=== PATIENT | female | born 1980 | race Caucasian/White ===

== ENCOUNTER 2025-03-13 10:36 | Emergency (ER) | payer OTHER, SELFPAY ==
--- NOTE | ~2025-03-13 | XR_ITS ---
EXAMINATION: XR chest 2V 03/13/2025 10:59 INDICATION: Cough PROCEDURE: 2 view chest COMPARISON: No prior studies for comparison. FINDINGS: The lungs are clear. The cardiomediastinal silhouette is within normal limits. There are no pleural effusions. There is no pneumothorax suspected. IMPRESSION: 1: NO ACUTE CARDIOPULMONARY DISEASE. Reviewed, dictated and finalized at location B.
[2025-03-13 10:49] VITALS: BP 146/90; PULSE 93; RESP 18; TEMP 36.2; O2SAT 100
--- NOTE | 2025-03-13 10:53 | ED.CHESTPAIN ---
HPI - Chest Pain General Chief Complaint: Chest Pain Stated Complaint: Chest/Back Pain Time Seen by Provider: 03/13/25 10:50 Source: patient Mode of arrival: ambulatory Limitations: no limitations History of Present Illness HPI narrative: Nikkie is a 44-year-old female patient presenting to the clinic today with complaints of midsternal chest pain, left scapula pain, and cough. She reports the cough is been going on for 2-3 weeks. Cough is nonproductive but feels as though she needs to get some phlegm up. Symptoms of chest discomfort and left scapula pain started yesterday. She developed a headache and took Excedrin migraine and this helped her headache. States that the pain started in her back and is now radiating into her chest. Pain is sharp and constant. Is unable to give me a pain rating scale number. She is a nonsmoker. Does take oral control but cannot remember the name of it. Recent travel 2 weeks ago to [place]-was a [address] but got out frequently to walk/bathroom breaks. 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 No recent trauma or injury. No history of blood clotting disorders. Denies leg swelling or pain. Denies any history of GERD, hyperlipidemia, hypertension, or diabetes. Denies any fevers, chills, body aches. Denies any shortness of breath or abdomen pain. Related Data Allergies Allergy/AdvReac Type Severity Reaction Status Date / Time codeine AdvReac Intermediate Palpitation Verified 03/13/25 10:53 s latex AdvReac Mild Rash Verified 03/13/25 10:53 Review of Systems Review of Systems: Pertinent positives per HPI. Patient denies any fever, chills, rash, headache, visual changes, dizziness, cough, runny nose, sore throat, shortness of breath, palpitations, nausea, vomiting, diarrhea, constipation, abdominal pain, or any urinary issues. [facility] Surgical History Surgical History (Updated 03/24/23 @ 14:13 by Keshia Carranza) S/P laparoscopic appendectomy Laparoscopic appendectomy 03/10/23 Social History Social History Smoking status: Never smoker Second hand tobacco smoke exposure: Yes Alcohol intake: current Substance use: never Lack of Transportation: No Lack of Food: Never True Current Housing: I Have Housing Concerned About Future Housing: No Difficulty Paying Gas/Electric Bills: No Difficulty Paying for Meds: No Currently Unemployed: No Education: Bachelor's Degree Difficulty w/ Childcare or Family Care: No Spiritual care concerns: No Comments At the time of my signature, I reviewed and agree with the nursing past medical, surgical, social, and family history. There is no relevant family history pertinent to the patient complaint. Exam Narrative: General: Well-developed, well nourished, in no apparent distress Head: Normocephalic, atraumatic. Chest wall: Even rise and fall of the chest wall, no swelling or bruising noted, nontender to palpation Cardio: Regular rate and rhythm, s1 and s2 normal, no murmur appreciated. Resp: Clear to auscultation bilaterally, no rhonchi, rales, wheezing or rubs. Extremities: No deformity, no edema, no cyanosis, capillary refill less than 2 seconds, peripheral pulses palpable and strong. Integumentary: [facility], warm, and dry, intact without lesion, no rashes. Course Course Emergency Course: Portions of this record may have been created with voice recognition software. Level of Care: Express Care Visit Vital Signs Vital signs: Vital Signs Temperature 36.2 C L 03/13/25 10:49 Pulse Rate 93 03/13/25 10:49 Respiratory Rate 18 03/13/25 10:49 Blood Pressure 146/90 H 03/13/25 10:49 Pulse Oximetry 100 03/13/25 10:49 Oxygen Delivery Room Air 03/13/25 10:49 Temperature 36.2 C L 03/13/25 10:49 Pulse Rate 93 03/13/25 10:49 Respiratory Rate 18 03/13/25 10:49 Blood Pressure 146/90 H 03/13/25 10:49 Pulse Oximetry 100 03/13/25 10:49 Oxygen Delivery Room Air 03/13/25 10:49 Vital signs reviewed MDM - Chest Pain MDM Narrative Medical decision making narrative: At the time of visit patient is resting comfortably on the exam table. Patient appears to be nontoxic. EKG: EKG shows sinus rhythm with marked right axis deviation with incomplete right bundle-branch block. Heart rates 82 beats per minute. No ST elevation, depression, or T-wave inversion noted. Diagnostics: Chest x-ray is negative for any acute cardiopulmonary process. Plan: Patient has pain to the left scapula is worse with movement and when taking deep breaths/coughing. No pneumonia, pneumothorax, or cardiomegaly seen on x-ray. Currently denies any shortness of breath. Wells criteria for DVT and PE are very low risk for PE and DVT. Suspicious for muscle skeletal pain due to cough and pain with movement. Will send in Rx for medrol dose pack and muscle relaxer. If symptoms worsen recommend going to the ED for further evaluation. Supportive measures were discussed with the patient and they voiced understanding discharge instructions and agrees to treatment plan. Return precautions reviewed Well Criteria for DVT: 0?points Low risk group for DVT. ?Unlikely? according to Wells? DVT studies. Well Criteria for PE: 0.0?points Low risk group: 1.3% chance of PE in an ED population. Another study assigned scores <=4 as ?PE Unlikely? and had a 3% incidence of PE. Differential Diagnosis Differential diagnosis: Likely fracture of rib, pneumothorax, stable angina, unstable angina pectoris, atypical chest pain, st elevation myocardial infarction, costochondritis, chest pain, biliary colic and other (PE, DVT, CAD, muscle strain, acute cough, pleurisy, pneumonia, congestive heart failure, GERD) Imaging Data Radiologist's impression: ITS Impressions Chest X-Ray 03/13/25 11:02 IMPRESSION: 1: NO ACUTE CARDIOPULMONARY DISEASE. ECG Data EKG #1: Attestation: I personally reviewed and interpreted this ECG as follows: ECG completion date: 03/13/25 ECG completion time: 10:44 Prior ECG tracings: not available for review Interpretation: EKG shows sinus rhythm with heart rate of 82 beats per minute without ST elevation, depression, or T-wave inversion. Shows marked right axis deviation with incomplete right bundle-branch block. AK interval is 151 milliseconds, QRS durations 94 milliseconds, QT-QTC is 358-397 milliseconds, P-R-T axis is 74 107 44 Discharge Plan Discharge Clinical Impression: Atypical chest pain, Pain of left scapula, Muscle strain Patient Disposition: Home Condition: Stable Instructions: Antibiotic Form, Chest Pain (ED), Muscle Strain (ED) Additional Instructions: Chest x-rays negative for any acute cardiopulmonary process. EKG shows sinus rhythm with heart rate of 82 beats per minute. Take any prescription medication only as prescribed-Medrol Dosepak and cyclobenzaprine No lifting more than 10 lb for the next 5 days. Be mindful of sedation precautions given to you if taking a muscle relaxer. May use heat or ice to the affected area May use blue emu, lidocaine patches, or asper cream to affected area- do not apply heat or ice directly over cream- can cause burn. Follow up with your PCP in 3-5 days if symptom persist. Go to the emergency room if symptoms worsen-you develop shortness of breath, worsening chest pain, or any other concerning symptoms Patient Language: Malay Prescriptions: New cyclobenzaprine 10 mg tablet 10 mg PO Q8H PRN (Reason: muscle spasm) 7 Days Qty: 21 0RF methylprednisolone [Medrol ([place])] 4 mg tablets,dose pack See Rx Instructions .ROUTE .COMPLEX Qty: 21 0RF Rx Instructions: orally per package directions Follow-up/Referrals: MONC[facility], [Primary Care Provider] - Stand Alone Forms: Work/School Release IP Time of Disposition: 11:12 Quality NIHSS Nursing Documentation ED NIHSS nursing documentation: reviewed/agree
--- NOTE | 2025-03-13 10:57 | ECG_ITS ---
Test Date: 2025-03-13 10:44:30 Measurements Intervals Davilla Rate: 82 P: 74 VT: 151 QRS: 107 QRSD: 94 T: 44 QT: 358 QTc: 420 Interpretive Statements SINUS RHYTHM RIGHT AXIS DEVIATION INCOMPLETE RIGHT BUNDLE BRANCH BLOCK BASELINE ARTIFACT- I, AVL BORDERLINE ECG No previous ECG available for comparison Electronically Signed On 03-13-2025 10:59:15 CDT by Mir Lewis D.O.
--- OUTSIDE RECORDS SUMMARY | 2025-03-13 12:24 | XMS_ITS | Clinical Summary ---
Author Organization [facility] Virtual Care Address [address] [place] [id number] Phone Care Team Providers Care Wet End Helper Name Role Phone [place] Primary Care Provider [phone] Antonio Trevino MD Unavailable [phone] Allergies Active Allergy Reactions Criticality Noted Date Comments Codeine Palpitations,Other ( See comments),Sweating Low 05/28/2015 Elevated heart rate Latex Redness,Rash,Itching Medium 05/28/2013 Medications acetaminophen-as pirin-caffeine (EXCEDRIN MIGRAINE) 250-250-65 mg per tablet Take 1 tablet by mouth every 6 (six) hours as needed Active loratadine (Claritin) 10 mg tablet Take 1 tablet (10 mg total) by mouth 07/04/2023 Active no115/iron/folic acid ( 19 ORAL) Take by mouth Active levonorgestreL-e thinyl estrad (Levora-28) 0.15-0.03 mg per tablet Take by mouth 07/20/2024 Active Active Problems Problem Noted Date Diagnosed Date History of elevated antinuclear antibody (PARVEZ) 0 10/11/2024 Overview (10/22/2024): 10/11/24: CMP nl, CBC nl, ESR 9, CRP <0.3mg/dL AVISE 10/11/24: PARVEZ 1:160 homogenous, dsDNA 374.98 (negative by crithidia), equivocal R IgM 4.4 Assessment & Plan (10/25/2024 12:56 PM UNIVERSITY TUTOR): 44-year-old female with PMHx of clavicle fx (2012) and s/p ganglionectomy L wrist () c/o history of +PARVEZ, ?RF, and chronic urticaria. Seen by rheum in [place] from [id number] without any official diagnosis and urticaria treated successfully with H1 and H2 blockers. Now only taking Claritin and denies any recurrence of rashes. Onset of left wrist pain following overactivity which has since resolved and denies any joint pain currently. There is no obvious synovitis or tenderness noted on peripheral joint exam. Notes Fhx father with but she denies any SI joint pain starting in childhood/teens, axial AM stiffness, or nocturnal pain. Rheumatologic evaluation with AVISE panel revealed a +PARVEZ 1:160. dsDNA was negative by confirmatory testing and RF was negative. ESR/CRP are normal. Based on isolated PARVEZ and absence of symptoms, there is no evidence to suggest a rheumatologic disease at this time. Plan to follow up as needed. Seen with Dr. Trevino. Assessment & Plan (10/11/2024 3:08 PM UNIVERSITY TUTOR): 44-year-old female with PMHx of clavicle fx (2012) and s/p ganglionectomy L wrist () c/o history of +PARVEZ, ?RF, and chronic urticaria. Seen by rheum in [place] from [id number] without any official diagnosis and urticaria treated successfully with H1 and H2 blockers. Now only taking Claritin and denies any recurrence of rashes. Onset of left wrist pain following overactivity which has since resolved and denies any currently joint pain. There is no obvious synovitis or tenderness noted on peripheral joint exam today. Notes Fhx father with but she denies any SI joint pain starting in childhood/teens, axial AM stiffness, or nocturnal pain. Symptoms and exam are not overly suspicious for a rheumatologic disease. Will order appropriate serologies to further evaluate. Should serologies result in positive AI antibodies, would likely just monitor due to lack of symptoms. Follow up in 2 weeks. Sooner if needed. Seen with Dr. Trevino. Pain of right hip 10/11/2024 Assessment & Plan (10/11/2024 3:09 PM UNIVERSITY TUTOR): Pain in the anterolateral hip around the insertion of the hip flexors vs TFL. Suspect mechanical pain. Could consider formal PT. Thumb paresthesia, left 10/11/2024 Assessment & Plan (10/11/2024 3:10 PM UNIVERSITY TUTOR): Mainly in the mornings then resolves during the day. Suspect transient nerve impingement that could be exacerbated with sleeping position. If symptoms would persist/progress, would consider nocturnal wrist splint before getting EMG/NCS. Immunizations Immunization Administration Dates Next Due Influenza, Trivalent, Cell C ulture-based MDCK, Preservative Free, Antibiotic Free, Intramuscular 07/03/2024 Surgical History Surgery Date Site/Laterality Comments TONSILLECTOMY Bilateral WISDOM TOOTH EXTRACTION APPENDECTOMY 03/03/2023 - 04/01/2023 GANGLION CYST EXCISION 09/02/2024 - 10/02/2024 Left left volar wrist Medical History Medical History Date Comments Clavicle fracture 2012 Social History Tobacco Use Types Packs/Day Years Used Date Smoking Tobacco: Never Tobacco Cessation:Counseling Given: Not Answered Comments Unknown Sex and Gender Information Value Date Recorded Sex Assigned at Not on file Legal Sex Female 3:06 PM UNIVERSITY TUTOR Gender Identity Not on file Sexual Orientation Not on file Obstetrics History Last Filed Vital Signs Vital Sign Reading Time Taken Comments Blood Pressure 136/84 10/25/2024 12:36 PM UNIVERSITY TUTOR Pulse 90 10/25/2024 12:36 PM UNIVERSITY TUTOR Temperature - - Respiratory Rate - - Oxygen Saturation 97% 10/25/2024 12:36 PM UNIVERSITY TUTOR Inhaled Oxygen Concentration - - Weight 64.9 kg (143 lb) 10/25/2024 12:36 PM UNIVERSITY TUTOR Height 164.5 cm (5' 4.75) 10/25/2024 12:[address] Body Mass Index 23.98 10/25/2024 12:36 PM UNIVERSITY TUTOR Plan of Treatment Health Maintenance Due Date Last Done Comments Cervical Cancer Screening 1979 Colon Cancer Screening-Colonoscopy 1979 Depression Screening 1979 Hepatitis C Screening 1979 Hepatitis B Screening 1997 Regular Well Visit/Exam 18-64 1997 Breast Cancer Screening-Mammogram 07/15/2021 07/15/2020, 07/15/2020 DTaP/Tdap/Td Vaccine (1 - Tdap) 08/04/2023 08/03/2023, 07/06/2012 Covid-19 Vaccine (3 - 2023-2 5 season) 2024 11/28/2020, 11/07/2020 Influenza Vaccine Completed 07/03/2024, 08/15/2020, 08/28/2019 HPV Vaccines Aged Out No longer eligi ble based on patient's age to complete this topic Pneumococcal vaccine <65 Aged Out No longer eligible based on patient's age to complete this topic Insurance [facility] CLAIMS [facility] CLAIMS [facility] CLAIMS Care Teams Wet End Helper Relationship Specialty Start Date End Date [place] PA [address] [place], [place] [id number] PCP - General Physician Metal Refiner 08/20/24 Antonio Trevino MD [address] [place] [address] Consulting Physician Rheumatology 08/20/24
--- OUTSIDE RECORDS SUMMARY | 2025-03-13 12:24 | XMS_ITS | Referral Summary ---
Author Organization [facility] Virtual Care Address [address] [place] [phone] Phone Care Team Providers Care Site Safety Representative Name Role Phone [place] Primary Care Provider [phone] Antonio Trevino MD Unavailable [phone] Allergies Active Allergy Reactions Criticality Noted [...] 4.4 Assessment & Plan (10/25/2024 12:56 PM SHEET ROCK NAILER): 44-year-old female with PMHx of clavicle fx (2012) and s/p ganglionectomy L wrist () c/o history of +PARVEZ, ?RF, and chronic urticaria. Seen by rheum in [place] from [phone] without any official diagnosis and urticaria treated [...] Trevino. Assessment & Plan (10/11/2024 3:08 PM SHEET ROCK NAILER): 44-year-old female with PMHx of clavicle fx (2012) and s/p ganglionectomy L wrist () c/o history of +PARVEZ, ?RF, and chronic urticaria. Seen by rheum in [place] from [id number] without any official diagnosis and urticaria treated [...] 10/11/2024 Assessment & Plan (10/11/2024 3:09 PM SHEET ROCK NAILER): Pain in the anterolateral hip around the insertion of the hip flexors vs TFL. Suspect mechanical pain. Could consider formal PT. Thumb paresthesia, left 10/11/2024 Assessment & Plan (10/11/2024 3:10 PM SHEET ROCK NAILER): Mainly in the mornings then resolves during the day. Suspect transient nerve impingement that could be exacerbated with sleeping position. If symptoms would persist/progress, would consider nocturnal wrist splint before getting EMG/NCS. Immunizations Immunization Administration Dates Next Due Influenza, Trivalent, Cell C ulture-based MDCK, Preservative Free, Antibiotic Free, Intramuscular 07/03/2024 Social History Tobacco Use Types Packs/Day Years Used Date Smoking Tobacco: Never Tobacco Cessation:Counseling Given: Not Answered Comments Unknown Sex and Gender Information Value Date Recorded Sex Assigned at Not on file Legal Sex Female 3:06 PM SHEET ROCK NAILER Gender Identity Not on file Sexual Orientation Not on file Last Filed Vital Signs Vital Sign Reading Time Taken Comments Blood Pressure 136/84 10/25/2024 12:36 PM SHEET ROCK NAILER Pulse 90 10/25/2024 12:36 PM SHEET ROCK NAILER Temperature - - Respiratory Rate - - Oxygen Saturation 97% 10/25/2024 12:36 PM SHEET ROCK NAILER Inhaled Oxygen Concentration - - Weight 64.9 kg (143 lb) 10/25/2024 12:36 PM SHEET ROCK NAILER Height 164.5 cm (5' 4.75) 10/25/2024 12:[address] Body Mass Index 23.98 10/25/2024 12:36 PM SHEET ROCK NAILER Plan of Treatment Not on file Insurance [facility] CLAIMS [facility] CLAIMS [facility] CLAIMS Care Teams Site Safety Representative Relationship Specialty Start Date End Date [place] PA [address] [place] [address] PCP - General Physician Curing Room Worker 08/20/24 Antonio Trevino MD [address] [place] [address] Consulting Physician Rheumatology 08/20/24
--- OUTSIDE RECORDS SUMMARY | 2025-03-13 12:24 | XMS_ITS | Continuity of Care Document ---
Author Organization [facility] sician Services Address [address] [place] [id number] Phone Care Team Providers Care Analytical Laboratory Technician Name Role Phone Jacklyn Clemente Unavailable Unavailable Allergies, Adverse Reactions, Alerts Substance Reaction Status Criticality latex Rash Active No Information codeine Altered Heart Rate Active No Inform ation Medications Medication Instructions Dosage Effective Dates (start - stop) Status Comments KURVELO 0.15 MG-30 MCG TAB TAKE ONE TABLET BY MOUTH ONCE DAILY 1.00 tablet - Active ketoconazole 2 % shampoo apply by topical route every 3 days to the affected area(s), lather, leave in place for 5 minutes, and then rinse off with water - Active Problems Condition Type Effective Dates (start - stop) Clini arnulfo Status Comments No Known Problems Procedures Procedure Date PREV VISIT, EST, AGE 18-39 Ofc/Outpt Visit, Est, Level 3 8 PREV VISIT, EST, AGE 18-39 Ofc/Outpt Visit, Est, Level 3 7 Simple Closure < 2.5 cm DRAINAGE OF SKIN ABSCESS Ofc/Outpt Visit, Est, Level 3 6 PREV VISIT, NEW, AGE 18-39 Advance Directives Directive Yes / No Effective Date File Name No Information Encounters Encounter Description Practice Location Reason(s) For Visit Diagnoses Date Provider Providers Copied on Encounter [facility], [address] [place] [address], [id number], tel:[phone] [facility] No Information 9 Leidy Villasenor. [address], [id number] [place], [id number] , [place]. tel: [phone] PREV VISIT, EST, AGE 18-39 [facility], [address] [place] [address], [id number], tel:[phone] [facility] well visit (chief complaint) Encntr for internet specialist exam (general) (routine) w/o abn findingsDyspareunia in female 8 Leidy Villasenor. [address], [id number] [place], [id number] , [place]. tel: [phone] Ofc/Outpt Visit, Est, Level 3 [facility], [address] [place] [address], [id number], [place] tel:[phone] [facility] L arm/hand pain twitching (chief complaint) Myofascial painStrain of left trapezius muscle, initial encounter 8 Leidy Villasenor. [address], [id number] [place], [id number] , [place]. tel: [phone] PREV VISIT, EST, AGE 18-39 [facility], [address] [place] [address], [id number], [place] tel:[phone] [facility] well visit (chief complaint) Encntr for internet specialist exam (general) (routine) w/o abn findingsFollicular cyst of the skin and subcutaneous tissue, unspPositive PARVEZ (antinuclear antibody)Blood in stool 7 Leidy Villasenor. [address], [id number] [place], [id number] , [place]. tel: [phone] Ofc/Outpt Visit, Est, [facility] 3 [facility], [address] [place] [address], [id number], tel:[phone] [facility] breast lump (chief complaint) dog bite (chief complaint) Exposure to blood-borne pathogenBreast cyst, right 7 Leiyd Villasenor. [address], [id number] [place], [id number] , [place]. tel: [phone] [facility], [address] [place] [address], [id number], [place] tel:[phone] [place] Bite injury (chief complaint) Forearm laceration, left, initial encounterDog bite, initial encounter Denisse Elizabeth. [address], [id number] [place], [id number] , [place]. tel: [phone] [facility], [address] [place] [address], [id number], tel:[phone] [facility] lymph node (chief complaint) Follicular cyst of the skin and subcutaneous tissue, unsp 6 Leidy Villasenor. [address], [id number] [place], [id number] , [place]. tel: [phone] Referring Provider: Jacklyn Forbes, [address] [id number] [place], [address] . tel:[phone] Ofc/Outpt Visit, [facility], Level 3 [facility], [address] [place] [address], [id number], [place] tel:[phone] [facility] chest pain (chief complaint) AnxietyChest pain of uncertain etiology 6 Leidy Villasenor. [address], [id number] [place], [id number] , [place]. tel: [phone] Referring Provider: Jacklyn Forbes, [address] [id number] [place], [address] . tel:[phone] PREV VISIT, NEW, AGE 18-39 [facility], [address] [place] [address], [place], [place], [id number], [place] tel:[phone] [facility] well visit (chief complaint) Encntr for internet specialist exam (general) (routine) w/o abn findingsGroin lumpDyspareunia in female 201 6 Leidy Villasenor. [address], [id number] [address], [place], [place], [id number] , [place]. tel: [phone] Referring Provider: Jacklyn Forbes, [address] [id number] [address]BN, [place], [address] . tel:[phone] Family History Family Member Type Diagnosis Age At Onset Mother Problem (finding) HEART MURMER 50 Maternal grandmother Problem (finding) HEART MURMER 50 Paternal grandmother Problem (finding) diabetes mellit us type 2 Paternal grandfather Problem (finding) diabetes mellit type 2 Father Problem (finding) akylospondilosis Immunizations Vaccine Date Status Comments Td (adult), adsorbed administered Note: I nvalid documented admin date was //2011. ; Source: Other Provider Payers Payer name Insurance type Covered libertarian ID Authoriza tion(s) [facility] [id number] Social History Type Description Quantity Date Captured Comments Alcohol Use Details Unknown Caffeine Use Details Unknown Tobacco Use Status No Information Smoking Status No Information Sex Female Sexual Orientation Straight or heterosexual Chief Complaint And Reason For Visit No Information Reason For Referral Reason For Referral No Information Plan Of Treatment Date Type Action Status Referral Ordered: Norberto Rawls DC -Chiropractic Medicine (related to Strain of left trapezius muscle, initial encounter) ordered Referral Referred To: Norberto Rawls DC [address] [place], [place], [id number] Ordered: Referrals: Chiropractic Medicine. Norberto Rawls DC. Location: Chiropractic. Evaluate and treat ordered Referral Ordered: Alma Carroll MD -Rheumatology (related to Positive PARVEZ (antinuclear antibody)) ordered Referral Referred To: Alma Carroll MD [address] [place], [place], [id number] Ordered: Referrals: Rheumatology. Alma Carroll MD. Evaluate and treat ordered Future Order: Lab Order CBC/AUTO DIFF ([id number]), Appointment on: , Sent on: Sent Future Order: Lab Order VITAMIN D (25-HYDROXY) LEVEL ([id number]), Appointment on: , Sent on: Sent Future Order: Lab Order LIPID NM OFILE ([id number]), Appointment on: , Sent on: Sent Future Order: Lab Order COMPREHE NSIVE METABOLIC PANEL ([id number]), Appointment on: , Sent on: Sent Future Order: Lab Order TSH W/ F T4 REFLEX IF INDICATED ([id number]), Appointment on: , Sent on: Sent Future Order: Lab Order HEPATITI S B SURFACE ANTIGEN ([id number]), Appointment on: , Sent on: Sent Future Order: Lab Order HIV 1 & 2 ANTIBODY/ANTIGEN ([id number]), Appointment on: , Sent on: Sent Future Order: Lab Order HEPATITI S C ANTIBODY ([id number]), Appointment on: , Sent on: Sent Future Order: Lab Order HEPATITI S B SURFACE ANTIGEN ([id number]), Appointment on: , Sent on: Sent Future Order: Lab Order HIV 1 & 2 ANTIBODY/ANTIGEN ([id number]), Appointment on: , Sent on: Sent Future Order: Lab Order HEPATITI S C ANTIBODY ([id number]), Appointment on: , Sent on: Sent Future Order: Lab Order CULTURE, AEROBIC & GRAM STAIN ([id number]), Appointment on: , Sent on: Sent History Of Present Illness Encounter Date Complaint History Of Segundo nt Illness well visit (comments) Nikkie is a 37 year old G0 female who presents for a comprehensive well woman exam. She has no history of abnormal pap smears. Her last pap was 02/12/2016 with HPV co-testing. She is currenlty using OCPs for controle. Her menses is monthly, lasting 4 days, normal flow, and no crmaping. She denies any abnormal vaginal discharge, odor, or itching. She does report painful intercourse. She was given Premarin cream to use, but she never tried it. She denies any breast lumps, bumps, or nipple discharge. Nikkie has no complaints today. She reports her shoulder pain has improved since working with Dr. Rawls. Socially, Nikkie is . 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 She is exercising 2x/week. She denies any tobacco, alcohol, or drug use. She reports that she may be moving to [place] in the fall. She enjoys taking trips and golfing. well visit Currently pregna nt: no. The patient states she uses oral contraceptive for control. Last LMP was 02/22/2018. Negative for: breast discharge, breast lump(s) and breast pain. Positive for: breast self exam. Menopausal symptoms negative for: hot flashes, insomnia, night sweats and vaginal dryness. There are no associated symptoms. Pertinent negatives include abnormal bleeding, anxiety, decreased libido, depression, difficulty falling sleep, dyspareunia, history of infertility, nocturia, sexual dysfunction, sleep disturbances, urinary incontinence, urinary urgency, vaginal discharge and vaginal itching. She does not take calcium. She does not take Vitamin D. She does not take multivitamins. She does not take Folic acid.The patient states her exercise level is moderate and frequency is 2-3 times/week. The patient does not use tobacco. She does drink alcohol. L arm/hand pain twitching L arm/hand pain twit hari (comments) Nikkie presents today for complaints of left arm pain and numbness with twitching of her fingers. She reports onset was one week ago. She does not recall any trauma or injury. 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 She reports the pain starts in her chest, above her left breast. It then radiates over her shoulder to her scapula and moves down the dorsal aspect of her left arm to her fingers. Her pain has been random with movement and at rest. For example, she woke up one morning with pain and her 3rd and 4th fingers twitching. She denies any salesforce trainer strength weakness. No complaints of neck stiffness. She does have increased frontal headaches. well visit The patient stat es she uses oral contraceptive for control. Last LMP was 02/24/2017. Negative for: breast discharge, breast pain and breast self exam. Positive for: breast lump(s) (side: right). Associated symptoms include anxiety and dyspareunia. Pertinent negatives include abnormal bleeding, decreased libido, depression, difficulty falling sleep, history of infertility, nocturia, sexual dysfunction, sleep disturbances, urinary incontinence, urinary urgency, vaginal discharge and vaginal itching. She does not take calcium. She does not take Vitamin D. She does not take multivitamins. She does not take Folic acid.The patient states her exercise level is moderate and frequency is 2-3 times/week. The patient does not use tobacco. She does drink alcohol. well visit (comments) Nikkie is a 36-year-old G0 female who presents for a comprehensive well woman exam. She has no history of abnormal Pap smears. Her last Pap was 02/12/2016 with HPV co-testing. She is currently using [place] OCP for control. She reports her menses is monthly lasting 3-4 days with color technician flow. She does have pain with intercourse. We did try to address this last year. At time she had tried multiple lubrications and position changes with no improvement. We did prescribe some vaginal estrogen to see if that would improve things, however she never trialed it. She is not overly interested in addressing this issue today. She denies any breast lumps bumps or nipple discharge. She does continue to have the small follicular cyst on her RIGHT breast. It is improved but continues to itch periodically. She is using triamcinolone cream 2 times a week for the itching. Nikkie also reports that the follicular cyst located on her LEFT groin is much better but continues to flareup.Nikkie has a history of a nonspecific autoimmune diagnosis. She was 1st evaluated in September 2010 in [facility] [place]. She had a workup at that time that showed a positive PARVEZ and a positive PATROL GUARD. Her laboratory testing done in 2012 in [facility] continued to show that the patient was PARVEZ positive. She also had a positive PATROL GUARD and HLA B 27. At that time she was instructed to follow up with rheumatology every 6-12 months. Significant to her family history is a father with ankylosing spondylitis in her father. Today, the patient denies any joint pain or morning stiffness. She denies any history of Raynaud's or mouth ulcerations. She has not had any further problems with skin rashes. She does report dry skin and dry scalp and is currently using a medicated shampoo. She does have a history of dry eye and several different eye infections. The patient does frequently complain of an unspecified fatigue. She is unable to identify any causes of this fatigue. She does have a underlying history of anxiety. She is currently treating that anxiety with yoga and exercise.Nikkie reports a family concern of heart murmur. She states that her maternal grandmother, mother, maternal uncle, and her sister all have a history of heart murmur. Nikkie does not know the underlying cause of the heart murmurs. She denies any palpitations, dizziness, or new fatigue.The patient complains of diarrhea and blood in her stools. She reports a longstanding history of IBS. This has previously been treated with amitriptyline to control her diarrhea. She stopped treatment years ago. Since starting her job here in [place] she has trouble with diarrhea at least 2-4x/month. She has noted blood in her stools with diarrhea and when she is constipated. She reports that when she has nice soft and formed stools there is no blood. She denies any knowledge of hemorrhoids. Onset of blood in her stools was over 6 months ago. She reports that she notes the blood in her stool about 2 times per monthSocially, Nikkie is . She works as a [employer]. She has a degree in wildlife biology and would like to pursue a master's degree [employer] in biology. She exercises 3 times per week. She denies tobacco or drug use. She does have rare alcohol use. breast lump (comments) Nikkie pr esents today for complaints of small nodule on her breast, near the nipple. Onset 1 month ago. She initially just thought she had dry skin and began putting lotion on it. However, it got enamel drier and bigger, and seemed to spread up. It is very itchy and periodically painful. She denies any nipple discharge, redness, or streaking. No other masses/lumps palpated on the breasts. Denies fever, headache, n/v. dog bite (comments) Nikkie was b iten by a dog at her work about 1 month ago. The dog was originally hanging onto its owners face in a locked bite, then transferred the bite from the street light wirer to Nikkie's arm. Nikkie did require stitches. She was tested at that time for blood born pathogens. No f/u mentioned at that time. dog bite breast lump Bite injury Bite injury The injury occur red on 11/23/2016. Symptoms related to the bite injury remain unchanged. The injury was work related and occurred on 11/23/2016. Mechanism of injury details: bit by dog at work on left forearm. The patient denies any aggravating factors. Interventions the patient has tried have not provided any relief. The patient denies any abdominal pain, decreased mobility, generalized weakness, joint pain, localized swelling or rash. Comments: Patient was at work today helping. Dog got run over by a car into the [facility] when the dog became very agitated and started biting its street light wirer as well as some other workers including the patient. The rabies status at this time is unknown the dog however the dog is in the custody of the ground water technician's rabies status should be noted by morning. Patient's tetanus is up-to-date last received 2011 lymph node lymph node (comments) Patient pr esents for evaluation of a swollen lymph node. The lymph node is located in her groin. During her AE, I had encouraged the patient to present when the lymph node was inflamed. The lymph node is noted as coming and going during her menses monthly. She states that the lymph node is swollen and painful today. She denies fever/chills, n/v, diarrhea, or dysuria. chest pain (comments) Nikkie heath presents today for f/u on her chest pain. She called 2 days ago and reported to our office she was having chest pain. We directed her to the ER. Her evaluation in the ER resulted in normal CXR, NSR on EKG, and labs WNL. She subsequently had a stress test today that was WNL. Stefanie reports today that her chest pain has been off and on for the last 1.5 weeks primarily at work. Her chest pain begins at the left ICS at about T3 and radiates over her left shoulder and down her arm, sometimes into her fingers. The pain comes and goes, but seems fairly steady while at work. 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 She was previously a veterinary anatomist in [place], [place] with no problems. She previously worked at [employer]. She loves animals and feels fearful about changing jobs. Stefanie reports that she has tried to be proactive in changing the environment of her job by talking with management and some of the Veteran[employer]. Stefanie feels extreme stress and anxiety about work. She is able to meet the demands put on her at work, but it comes at an expense of her peace, mekhi, and happiness. The demands of work affect her not only on the days she works, but on her days of when she simply thinks about work. She denies SI and HI. She is having nightmares of someone chasing her, causing very interrupted sleep. Of note, in September of 2010 Stefanie developed uriticaria. She had a work-up that had a positive PARVEZ and positive PATROL GUARD (non-specific connective tissue). However, she was seen by a captain assistant in [place], [place] that did not feel Stefanie fulfilled the criteria for diagnosis of lupus or mixed connective tissue disorder despite these positive serological tests. Her only symptom at that time and thus far is dry eyes. She has been seen by rheumatology every 6 months-year since 2010. chest pain well visit (comments) Nikkie is a 35 year old G0 female who presents for a comprehensive well woman exam. She reports no history of abnormal pap smears. Her last pap was 1 year ago in [place]. She is using [place] OCP for control. She reports her period is monthly, Lasts 4 days, light, no pain. She denies any abnormal vaginal discharge, odor, or itching. She does have pain with intercourse. It is begins with insertion and feels like the tissues are being pulled. There is sometimes a burning sensation as well. She has tried multiple lubrications and position changes with no improvement. She denies any breast lumps, bumps, or nipple discharge.Nikkie complains today of a lump in her left groin that comes and goes. She reports that when it comes it lasts 1-2 months. She has history of a non-specific autoimmune diagnosis. She also reports a history of anxiety that causes GI upset (vomiting or diarrhea). She has not taken medication for her anxiety and does not feel it occurs enough to warrant intervention. Socially, Nikkie is . She and her do not have plans to have children. They are originally from [place]. Her was relocated her to fly the [employer]. 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 She exercises 3 days/week with weights and cardio. She denies tobacco or drug use. Rare alcohol use. well visit The patient stat es she uses oral contraceptive for control. Last LMP was 01/29/2016. Her menses is regular with normal flow with a frequency of every 28 days. Negative for dysmenorrhea and menorrhagia. Negative for: breast discharge, breast lump(s) and breast pain. Positive for: breast self exam. Pertinent negatives include abnormal bleeding, anxiety, decreased libido, depression, difficulty falling sleep, dyspareunia, history of infertility, nocturia, sexual dysfunction, sleep disturbances, urinary incontinence, urinary urgency, vaginal discharge and vaginal itching. She does not take calcium. She does not take Vitamin D. She does not take multivitamins.The patient states her exercise level is moderate and frequency is 2-3 times/week. The patient does not use tobacco. She does drink alcohol. Functional Status Date Functional Assessmen t No Information Instructions Date Instruction Additional Infor duy Encouraged patient t o trial vaginal cream. Offered to send updated prescription. Patient declined. Related to Dyspareunia in female Pap with HPV co-test ing completed today. OCP refilled. Encouraged self-breast exams. Mammograms recommended at the age of 40 years. Advised daily multivitamin and vitamin D supplementation. Patient to f/u in 1 year or provider of choice if/when she moves. Related to Encntr for internet specialist exam (general) (routine) w/o abn findings Patient to continue conservative measures such as rest, ice, and gentle stretches. Referral to Dr. Rawls for evaluation and treatment. Patient to f/u as needed. Related to Strain of left trapezius muscle, initial encounter If she the blood in her stools becomes more regular and/or associated with normal BMs, I advise colonoscopy. Related to Blood in stool Breast and pelvic ex am completed today. Pap due in 2020OCP refilled. Encouraged self breast exams. Preventative labs ordered.Advised regular physical activity.Patient to follow-up in one year or sooner as needed. Related to Encntr for internet specialist exam (general) (routine) w/o abn findings Prescription for cli ndamycin 300 mg by mouth 3 times daily 7 days.Prescription for mupirocin to be applied topically 2 times daily 7 days. Related to Follicular cyst of the skin and subcutaneous tissue, unsp Referral to Alma Carroll, Rheumatology at [facility]. Related to Positive PARVEZ (antinuclear antibody) Patient instructed t o cleanse with hibiclens daily x 7 days. Hydrocortisone 2.5% for inflammation and pruiritis. Keflex 500 mg BID x 7 days. Patient to RTC if no improvement. Related to Breast cyst, right Advise 6 months f/u on evaluation of exposure to BPP. Related to Exposure to blood-borne pathogen Form is fax[facility] to [facility]. Rabies status of the mandible is unknown right now but will be known in the morning. Dog is already in quaranite if its rabies status is unknown or inadequate. f/u with [facility] recommended. should not need rabies treatment either way. Related to Dog bite, initial encounter Laceration thoroughl y irrigated with copious saline solution.Time out [id number] lidocaine 2% with epi used to obtain adequate anesthesiaBorders approximated with 3 interrupted sutures using 5-0 ethilon.Bacitracin placed on wound and covered.Patient to keep wound clean and dry for 24 hours. After 24 hours patient may then shower and clean area gently with mild soap and water. Patient should avoid dirty water. Daily bandage changes and twice a day application of bacitracin. Watch for signs of infection, which were discussed. Elevate as needed. Ice as needed. Tslu-foj-erleilm Tylenol or ibuprofen when necessary. Followup for suture removal in 7-10 days.Patient is placed on Augmentin for prophylaxisTetanus is up to dateDisposition: sent home Related to Forearm laceration, left, initial encounter Suspect folliculitis secondary to shaving, despite the cyclic nature of the formation of the cyst with the patient's menses. Patient instructed to anticipate some bruising and tenderness in the area. May use ibuprofen for comfort. Prescription for ciprofloxacin. Encouraged warm compresses for comfort. Related to Follicular cyst of the skin and subcutaneous tissue, unsp Along with treatment for anxiety as previously mentioned, I recommended referral to PT and/or massage therapy. If these conservative measures due not alleviate pain, in particular the pain down her left arm, evaluation with Ortho may be beneficial. F/u with rheumatology as done in the past to re-evaluate for any connective tissue disorder may be helpful as well. Related to Chest pain of uncertain etiology Discussed treatment options to include quitting her current job, treatment with SSRI, counseling, and increased exercise. At this point, I strongly advised Stefanie to quit her job and look for a new one, if possible. I also advised counseling and mentioned referral to Rhonda Sepulveda. Related to Anxiety Prescription for pre johnson cream given to see if dyspareunia, in particular the pulling/ripping tissue sensation, resolves. Related to Dyspareunia in female Patient will notify me when the lump is at its largest and I will arrange ultrasound at that time. Related to Groin lump Discussed [facility] janelle rodriguez. Pap with HPV cotesting completed today. control refilled. Patient will take continuously with 3 periods/year. Encouraged self-breast exams. Patient to f/u in 1 year or sooner as needed. 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
--- OUTSIDE RECORDS SUMMARY | 2025-03-13 12:33 | XMS_ITS | Continuity of Care Document ---
Author Organization [facility] sician Services Address [address] [place] [address] Phone Care Team Providers Care Aoc Director Combat Operations Officer Name Role Phone Jacklyn Clemente Unavailable Unavailable [...] Diagnoses Date Provider Providers Copied on Encounter [facility], [address] [place] [address], [id number], tel:[phone] [facility] No Information 9 Leidy Villasenor. [address], [id number] [place], [id number] , [place]. 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 [address], [id number] [place], [id number] , [place]. tel: [phone] Ofc/Outpt Visit, Est, Level 3 [facility], [address] [place] [address], [id number], [place] tel:[phone] [facility] L arm/hand pain twitching (chief complaint) Myofascial painStrain of left trapezius muscle, initial encounter 8 Leidy Villasenor. [address], [id number] [place], [id number] , [place]. tel: [phone] PREV VISIT, EST, AGE 18-39 [facility], [address] [place] [address], [id number], [place] tel:[phone] [facility] well visit (chief complaint) Encntr for inventory control planner exam (general) (routine) w/o abn findingsFollicular cyst of the skin and subcutaneous tissue, unspPositive PARVEZ (antinuclear antibody)Blood in stool 7 Leidy Villasenor. [address], [id number] [place], [id number] , [place]. tel: [phone] Ofc/Outpt Visit, Est, [facility] 3 [facility], [address] [place] [address], [id number], tel:[phone] [facility] breast lump (chief complaint) dog bite (chief complaint) Exposure to blood-borne pathogenBreast cyst, right 7 Leidy Villasenor. [address], [id number] [place], [id number] , [place]. tel: [phone] [facility], [address] [place] [address], [id number], [place] tel:[phone] [place] Bite injury (chief complaint) Forearm laceration, left, initial encounterDog bite, initial encounter Denisse Elizabeth. [address], [id number] [place], [id number] , [place]. tel: [phone] [facility], [address] [place] [address], [id number], tel:[phone] [facility] lymph node (chief complaint) Follicular cyst of the skin and subcutaneous tissue, unsp 6 Leidy Villasenor. [address], [id number] [place], [id number] , [place]. tel: [phone] Referring Provider: Jacklyn Forbes, [address] [id number] [place], [address] . tel:[phone] Ofc/Outpt Visit, [facility], Level 3 [facility], [address] [place] [address], [id number], [place] tel:[phone] [facility] chest pain (chief complaint) AnxietyChest pain of uncertain etiology 6 Leidy Villasenor. [address], [id number] [place], [place], [id number] , [place]. tel: [phone] Referring Provider: Jacklyn Forbes, [address] [id number] [place], [address] . 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 [address], [id number] [address], [place], [place], [id number] , [place]. tel: [phone] Referring Provider: Jacklyn Forbes, [address] [id number] [address], [place], [address] . tel:[phone] Family History Family Member Type Diagnosis Age [...] Provider Payers Payer name Insurance type Covered green party ID Authoriza tion(s) [facility] [id number] Social History Type Description Quantity Date Captured [...] [place] [address] [place], [place], [id number] Ordered: Referrals: Chiropractic Medicine. Norberto Rawls DC. Location: Chiropractic. Evaluate and treat ordered Referral Ordered: Alma Carroll MD -Rheumatology (related to Positive PARVEZ (antinuclear antibody)) ordered Referral Referred To: Alma Carroll MD [address], [place], [phone] Ordered: Referrals: Rheumatology. Alma Carroll MD. Evaluate and treat ordered Future Order: Lab Order CBC/AUTO DIFF ([id number]), Appointment on: , Sent on: Sent Future Order: Lab Order VITAMIN D (25-HYDROXY) LEVEL ([id number]), Appointment on: , Sent on: Sent Future Order: Lab Order LIPID OH OFILE ([id number]), Appointment on: , Sent on: Sent Future Order: Lab Order COMPREHE NSIVE METABOLIC PANEL ([id number]), Appointment on: , Sent on: Sent Future Order: Lab Order TSH W/ F T4 REFLEX IF INDICATED ([id number]), Appointment on: , Sent on: Sent Future Order: Lab Order HEPATITI S B SURFACE ANTIGEN ([id number]), Appointment on: , Sent on: Sent Future Order: Lab Order HIV 1 & 2 ANTIBODY/ANTIGEN ([id number]), Appointment on: , Sent on: Sent Future Order: Lab Order HEPATITI S C ANTIBODY ([id number]), Appointment on: , Sent on: Sent Future Order: Lab Order HEPATITI S B SURFACE ANTIGEN ([id number]), Appointment on: , Sent on: Sent Future Order: Lab Order HIV 1 & 2 ANTIBODY/ANTIGEN ([id number]), Appointment on: , Sent on: Sent Future Order: Lab Order HEPATITI S C ANTIBODY ([id number]), Appointment on: , Sent on: Sent Future Order: Lab Order CULTURE, AEROBIC & GRAM STAIN ([id number]), Appointment on: , Sent on: Sent History [...] Nikkie is . 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 She is exercising 2x/week. She denies any tobacco, alcohol, or drug use. She reports that she may be moving to [place] in the fall. 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 She reports the pain starts in her chest, above her left breast. It then radiates over her shoulder to her scapula and moves down the dorsal aspect of her left arm to her fingers. Her pain has been random with movement and at rest. For example, she woke up one morning with pain and her 3rd and 4th fingers twitching. She denies any family intervention specialist strength weakness. No complaints of neck stiffness. [...] with HPV co-testing. She is currently using [facility] for control. She reports her menses is monthly lasting 3-4 days with stenographer print shop flow. She does have pain with intercourse. [...] evaluated in September 2010 in [facility] [place]. She had a workup at that time that showed a positive PARVEZ and a positive PROFESSOR OF RELIGION. Her laboratory testing done in 2012 in [facility] continued to show that the patient was PARVEZ positive. She also had a positive PROFESSOR OF RELIGION and HLA B 27. At that time [...] ago. Since starting her job here in [place] she has trouble with diarrhea at least [...] Nikkie is . She works as a [employer]. She has a degree in wildlife biology [...] putting lotion on it. However, it got short goods drier and bigger, and seemed to spread [...] bite, then transferred the bite from the biomedical equipment support specialist to Nikkie's arm. Nikkie did require stitches. [...] run over by a car into the [facility] when the dog became very agitated and started biting its biomedical equipment support specialist as well as some other workers including the patient. The rabies status at this time is unknown the dog however the dog is in the custody of the bottle house cleaners supervisor's rabies status should be noted by morning. [...] at work. Stefanie currently works as a riveter portable machine. She was previously a riveter portable machine in [place], [place] with no problems. She previously worked at [employer]. She loves animals and feels fearful about [...] that had a positive PARVEZ and positive PROFESSOR OF RELIGION (non-specific connective tissue). However, she was seen by a bioprocess engineer in [place], [place] that did not feel Stefanie fulfilled [...] last pap was 1 year ago in [place], [place]. She is using [facility]CP for [...] to have children. They are originally from [place]. Her was relocated her to fly the [employer]. 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 She exercises 3 days/week with weights and [...] if/when she moves. 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 Related to Encntr for inventory control planner exam (general) (routine) w/o abn findings Prescription for cli ndamycin 300 mg by mouth 3 times daily 7 days.Prescription for mupirocin to be applied topically 2 times daily 7 days. Related to Follicular cyst of the skin and subcutaneous tissue, unsp Referral to Alma Carroll, Rheumatology at [facility]. Related to Positive PARVEZ (antinuclear antibody) Patient instructed t o cleanse with hibiclens daily x 7 days. Hydrocortisone 2.5% for inflammation and pruiritis. Keflex 500 mg BID x 7 days. Patient to RTC if no improvement. Related to Breast cyst, right Advise 6 months f/u on evaluation of exposure to BPP. Related to Exposure to blood-borne pathogen [facility]. Rabies status of the mandible is unknown right now but will be known in the morning. Dog is already in quaranite if its rabies status is unknown or inadequate. f/u with [facility] recommended. should not need rabies treatment either way. Related to Dog bite, initial encounter Laceration thoroughl y irrigated with copious saline solution.Time out [id number] lidocaine 2% with epi used to obtain [...] discussed. Elevate as needed. Ice as needed. [id number] Tylenol or ibuprofen when necessary. Followup for [...] sooner as needed. Related to Encntr for inventory control planner exam (general) (routine) w/o abn findings Assessments Type Assessment Date No Information Patient Care Teams Name Effective Dates (start - stop) Status Members No Information
== END 2025-03-13 11:15 | disposition home or self-care (01) ==
PROVIDERS: Emergency Provider Nurse Practitioner Family
DX: R07.89 Other chest pain (principal); S46.812A Strain of other muscles, fascia and tendons at shoulder and upper arm level, left arm, initial encounter; X58.XXXA Exposure to other specified factors, initial encounter
CPT/HCPCS: 71046; 93005; 99213; G0463